=== PATIENT | female | born 1995 | race Caucasian/White ===

== ENCOUNTER 2021-06-08 20:46 | Emergency (ER) | payer BC ==
[2021-06-08] MEDS ORDERED: Sodium Chloride 0.9% 10 ML Syringe FLUSH PRN (20:55)
--- NOTE | 2021-06-08 21:04 | EDM.PDOC ---
ED HPI GENERAL MEDICAL PROBLEM - General Chief Complaint: Respiratory Problem Stated Complaint: ERNESTO AMB Time Seen by Provider: 06/08/21 20:50 Source of Information: Reports: Patient, EMS, Family History Limitations: Reports: No Limitations - History of Present Illness INITIAL COMMENTS - FREE TEXT/NARRATIVE: The patient presents by [facility] for shortness of breath. The patient started feeling sick a few days ago with cough, congestion, runny nose and fever. She went to the walk in clinic and was tested for COVID 19 and it was negative. She felt a little better this weekend. She was at home and was going to take a shower tonight and started feeling short of breath and some tightness in her chest. She told her dad and they started coming to the ER. [place] of [place]. She had more trouble breathing and the called EMS. They gave her a breathing treatment and put her on oxygen. She feels a little better now. She does have a history of asthma. She has no chest pain now. She does not smoke. Onset: Gradual Duration: Day(s): Location: Reports: Chest Quality: Reports: Other (tightness) Severity: Moderate Improves with: Reports: None Worsens with: Reports: None Associated Symptoms: Reports: Chest Pain, Cough, Fever/Chills, Shortness of Breath. Denies: Headaches, Nausea/Vomiting - Related Data Allergies Allergy/AdvReac Type Severity Reaction Status Date / Time latex Allergy Hives Verified 06/08/21 20:56 spironolactone Allergy Shortness Verified 06/08/21 20:56 of Breath Home Meds: Home Meds norethindrone ac-eth estradioL [Junel 1 mg-20 Mcg Tablet] 1 tab PO DAILY 06/08/21 [History] predniSONE [Prednisone] 40 mg PO DAILY #10 tablet 06/08/21 [Rx] Social & Family History - Tobacco Use Tobacco Use Status *Q: Never Tobacco User Second Hand Smoke Exposure: No - Caffeine Use Caffeine Use: Reports: Soda - Recreational Drug Use Recreational Drug Use: No ED ROS GENERAL - Review of Systems Review Of Systems: See Below Constitutional: Reports: Fever, Chills HEENT: Reports: No Symptoms Respiratory: Reports: Shortness of Breath, Cough Cardiovascular: Reports: Chest Pain Endocrine: Reports: No Symptoms GI/Abdominal: Reports: No Symptoms : Reports: No Symptoms Musculoskeletal: Reports: No Symptoms ED EXAM, GENERAL - Physical Exam Exam: See Below Exam Limited By: No Limitations General Appearance: Alert, No Apparent Distress Ears: Normal External Exam Nose: Normal Inspection Throat/Mouth: Other (Mild oropharynx erythema) Head: Atraumatic, Normocephalic Neck: Normal Inspection, Supple, Non-Tender Respiratory/Chest: No Respiratory Distress, Decreased Breath Sounds Cardiovascular: Regular Rate, Rhythm, No Edema, No Murmur GI/Abdominal: Soft, Non-Tender, No Organomegaly, No Mass Back Exam: Normal Inspection Extremities: Normal Inspection Course - Vital Signs Last Recorded V/S: Last Vital Signs Temp 99.1 F 06/08/21 20:54 Pulse 107 H 06/08/21 20:54 Resp 20 06/08/21 20:54 BP 142/89 H 06/08/21 20:54 Pulse Ox 97 06/08/21 20:54 - Orders/Labs/Meds Orders: Active Orders 24 hr Category Date Time Status Cardiac Monitoring [RC] . DIRECTED Care 06/08/21 20:55 Active Oxygen Therapy [RC] PRN Care 06/08/21 20:56 Active Peripheral IV Care [RC] . DIRECTED Care 06/08/21 20:56 Active LACTIC ACID [CHEM] Stat Lab 06/08/21 21:49 Received Sodium Chloride 0.9% [Saline Flush] Med 06/08/21 20:55 Active 10 ml FLUSH ASDIRECTED PRN Peripheral IV Insertion Adult [OM.PC] Stat Oth 06/08/21 20:55 Ordered Medication Orders Sodium Chloride (Sodium Chloride 0.9% 10 Ml Syringe) 10 ml FLUSH ASDIRECTED PRN PRN Reason: Keep Vein Open Last Admin: 06/08/21 21:32 Dose: 10 ml Documented by: HELEN Labs: Laboratory Tests 06/08/21 06/08/21 06/08/21 Range/Units 20:59 21:49 21:49 WBC 10.13 H (3.98-10.04) K/mm3 RBC 4.29 (3.98-5.22) M/mm3 Hgb 13.3 (11.2-15.7) gm/dl Hct 41.1 (34.1-44.9) % MCV 95.8 H (79.4-94.8) fl MCH 31.0 (25.6-32.2) pg MCHC 32.4 (32.2-35.5) g/dl RDW Std Deviation 42.4 (36.4-46.3) fL Plt Count 275 (182-369) K/mm3 MPV 9.7 (9.4-12.3) fl Neut % (Auto) 59.0 (34.0-71.1) % Lymph % (Auto) 25.4 (19.3-51.7) % Newton % (Auto) 13.6 H (4.7-12.5) % Eos % (Auto) 1.4 (0.7-5.8) Baso % (Auto) 0.2 (0.1-1.2) % Neut # (Auto) 5.98 (1.56-6.13) K/mm3 Lymph # (Auto) 2.57 (1.18-3.74) K/mm3 Newton # (Auto) 1.38 H (0.24-0.36) K/mm3 Eos # (Auto) 0.14 (0.04-0.36) K/mm3 Baso # (Auto) 0.02 (0.01-0.08) K/mm3 D-Dimer, Quantitative 0.35 (0.19-0.50) mg/L Sodium (136-145) mEq/L Potassium (3.5-5.1) mEq/L Chloride (98-107) mEq/L Carbon Dioxide (21-32) mEq/L Anion Gap (5-15) BUN (7-18) mg/dL Creatinine (0.55-1.02) mg/dL Est Cr Clr Drug Dosing mL/min Estimated GFR (MDRD) (>60) mL/min BUN/Creatinine Ratio (14-18) Glucose (70-99) mg/dL Calcium (8.5-10.1) mg/dL Total Bilirubin (0.2-1.0) mg/dL AST (15-37) U/L ALT (14-59) U/L Alkaline Phosphatase (46-116) U/L C-Reactive Protein (<1.0) mg/dL Total Protein (6.4-8.2) g/dl Albumin (3.4-5.0) g/dl Globulin gm/dL Albumin/Globulin Ratio (1-2) SARS-CoV-2 RNA ([facility]OL[facility]) Negative (NEGATIVE) 06/08/21 Range/Units 21:49 WBC (3.98-10.04) K/mm3 RBC (3.98-5.22) M/mm3 Hgb (11.2-15.7) gm/dl Hct (34.1-44.9) % MCV (79.4-94.8) fl MCH (25.6-32.2) pg MCHC (32.2-35.5) g/dl RDW Std Deviation (36.4-46.3) fL Plt Count (182-369) K/mm3 MPV (9.4-12.3) fl Neut % (Auto) (34.0-71.1) % Lymph % (Auto) (19.3-51.7) % Newton % (Auto) (4.7-12.5) % Eos % (Auto) (0.7-5.8) Baso % (Auto) (0.1-1.2) % Neut # (Auto) (1.56-6.13) K/mm3 Lymph # (Auto) (1.18-3.74) K/mm3 Newton # (Auto) (0.24-0.36) K/mm3 Eos # (Auto) (0.04-0.36) K/mm3 Baso # (Auto) (0.01-0.08) K/mm3 D-Dimer, Quantitative (0.19-0.50) mg/L Sodium 140 (136-145) mEq/L Potassium 3.5 (3.5-5.1) mEq/L Chloride 105 (98-107) mEq/L Carbon Dioxide 25 (21-32) mEq/L Anion Gap 13.5 (5-15) BUN 8 (7-18) mg/dL Creatinine 0.8 (0.55-1.02) mg/dL Est Cr Clr Drug Dosing 89.70 mL/min Estimated GFR (MDRD) > 60 (>60) mL/min BUN/Creatinine Ratio 10.0 L (14-18) Glucose 119 H (70-99) mg/dL Calcium 8.9 (8.5-10.1) mg/dL Total Bilirubin 0.4 (0.2-1.0) mg/dL AST 27 (15-37) U/L ALT 44 (14-59) U/L Alkaline Phosphatase 40 L (46-116) U/L C-Reactive Protein 8.9 H* (<1.0) mg/dL Total Protein 7.0 (6.4-8.2) g/dl Albumin 3.1 L (3.4-5.0) g/dl Globulin 3.9 gm/dL Albumin/Globulin Ratio 0.8 L (1-2) SARS-CoV-2 RNA ([facility]OL[facility]) (NEGATIVE) Meds: Medications Generic Name Dose Route Start Last Admin Trade Name Freq PRN Reason Stop Dose Admin Sodium Chloride 10 ml 06/08/21 20:55 06/08/21 21:32 Sodium Chloride 0.9% 10 Ml Syringe FLUSH 10 ml ASDIRECTED PRN Administration Keep Vein Open - Re-Assessments/Exams Free Text/Narrative Re-Assessment/Exam: 06/08/21 21:03 I ordered oxygen PRN, IV saline lock, CXR, labs and COVID 19 and influenza screen. 06/08/21 22:30 Her CXR looks good. Her WBC was slighltly elevated at 10.13. Her D-dimer was negative. Her CRP was elevated at 8.9. She was COVID negative. She feels better. I feel she has a viral URI with an asthma exacerbation. I will give her a dose of solu-medrol 125mg IV and some prednisone. 06/08/21 22:33 I will give her an inhaler from here. Hers has . Departure - Departure Time of Disposition: 22:40 Disposition: Home, Self-Care 01 Condition: Good Clinical Impression: Viral URI Asthma exacerbation Qualifiers: Asthma severity: mild Asthma persistence: unspecified Qualified Code(s): J45.901 - Unspecified asthma with (acute) exacerbation - Discharge Information *PRESCRIPTION DRUG MONITORING PROGRAM REVIEWED*: Not Applicable *COPY OF PRESCRIPTION DRUG MONITORING REPORT IN PATIENT NICHOLAS: Not Applicable Prescriptions: predniSONE [Prednisone] 40 mg PO DAILY #10 tablet Forms: ED Department Discharge Additional Instructions: Drink plenty of fluids. Take the prednisone daily for 5 days. Take tylenol or motrin for any fever. Use the inhaler 2 puffs every 6 hours as needed for shortness of breath. Follow up with your provider within a week. Please return if you are worse. Sepsis Event Note (ED) - Focused Exam Vital Signs: Vital Signs Temp Pulse Resp BP Pulse Ox 06/08/21 20:54 99.1 F 107 H 20 142/89 H 97 - My Orders Last 24 Hours: My Active Orders 06/08/21 20:55 Cardiac Monitoring [RC] . DIRECTED Sodium Chloride 0.9% [Saline Flush] 10 ml FLUSH ASDIRECTED PRN Peripheral IV Insertion Adult [OM.PC] Stat 06/08/21 20:56 Oxygen Therapy [RC] PRN Peripheral IV Care [RC] . DIRECTED 06/08/21 21:49 LACTIC ACID [CHEM] Stat - Assessment/Plan Last 24 Hours: My Active Orders 06/08/21 20:55 Cardiac Monitoring [RC] . DIRECTED Sodium Chloride 0.9% [Saline Flush] 10 ml FLUSH ASDIRECTED PRN Peripheral IV Insertion Adult [OM.PC] Stat 06/08/21 20:56 Oxygen Therapy [RC] PRN Peripheral IV Care [RC] . DIRECTED 06/08/21 21:49 LACTIC ACID [CHEM] Stat
--- NOTE | 2021-06-08 21:33 | CR ---
Chest: Portable view of the chest was obtained. Comparison: No prior chest imaging is available. Heart size and mediastinum are within normal limits. Minimal atelectasis is seen above the left hemidiaphragm. Lungs otherwise are clear. Bony structures show nothing acute. Impression: 1. Minimal left basilar atelectasis. 2. Portable chest x-ray is otherwise unremarkable. Diagnostic code #2
[2021-06-08] MEDS ORDERED: methylPREDNISolone Sodium Succinate 125 MG/2 ML SDV IVPUSH ONE (22:30)
[2021-06-08] MEDS ORDERED: Albuterol 6.7 GM Inhaler INH ONE (22:33)
== END 2021-06-08 22:57 | disposition home or self-care (01) ==
LOC: JD.ED 20:46
DX: J45.901 Unspecified asthma with (acute) exacerbation (principal); J06.9 Acute upper respiratory infection, unspecified; Z20.822 Contact with and (suspected) exposure to COVID-19; Z91.040 Latex allergy status; Z88.8 Allergy status to other drugs, medicaments and biological substances
CPT/HCPCS: 36415; 71045; 80053; 83605; 85025; 85379; 86140; 87635; 87804; 96374; 99285; A9270; J2930; U0002